=== PATIENT | female | born 1955 | race Caucasian/White ===

== ENCOUNTER → 2023-01-17 | Outpatient (CLI) | payer OTHER ==
[2023-01-20 17:09] LABS: M-SPIKE, % Comment: % (Not Observed); PROTEIN,TOTAL,URINE 124.6 mg/dL (Not Estab.)
== END ==
LOC: LAB 08:30 → LAB SHORT 08:30
PROVIDERS: Hospitalist
DX: N18.5 Chronic kidney disease, stage 5 (principal)
CPT/HCPCS: 84156; 84166

== ENCOUNTER 2023-02-07 02:31 | Day surgery (SDC) | payer OTHER ==
[2023-02-07 13:45] VITALS: BP 154/87
[2023-02-07] MEDS ORDERED: Rena-Vite Tabl0.8 MG PO (13:51)
[2023-02-07] MEDS ORDERED: CINACALCET HCL30 M1 PO (13:52)
[2023-02-07] MEDS ORDERED: DICLOFENAC SOD100 G1 TOP (13:53)
== END 2023-02-07 14:22 | disposition home or self-care (01) ==
LOC: ATC 02:31
DX: N18.5 Chronic kidney disease, stage 5 (principal); D63.1 Anemia in chronic kidney disease; F17.210 Nicotine dependence, cigarettes, uncomplicated; Z79.899 Other long term (current) drug therapy
CPT/HCPCS: 96372; Q5106

== ENCOUNTER 2023-03-14 08:45 | Day surgery (SDC) | payer OTHER ==
[~2023-03-14 08:45] MED LIST: CINACALCET HCL30 M1 PO; DICLOFENAC SOD100 G1 TOP; Rena-Vite Tabl0.8 MG PO
[2023-03-14 13:59] VITALS: BP 158/94
[2023-03-14] MEDS ORDERED: RENVELA800 MG PO (14:08)
== END 2023-03-14 14:10 | disposition home or self-care (01) ==
LOC: ATC 08:45
DX: D64.9 Anemia, unspecified (principal); N18.5 Chronic kidney disease, stage 5
CPT/HCPCS: 96372; Q5106

== ENCOUNTER 2023-04-13 07:51 | Day surgery (SDC) | payer OTHER ==
[~2023-04-13 07:51] MED LIST changes: +RENVELA800 MG PO
[2023-04-13 13:48] VITALS: BP 137/98
== END 2023-04-13 13:55 | disposition home or self-care (01) ==
LOC: ATC 07:51
DX: N18.4 Chronic kidney disease, stage 4 (severe) (principal); D63.1 Anemia in chronic kidney disease
CPT/HCPCS: 96372; Q5106

== ENCOUNTER 2023-05-11 04:07 | Day surgery (SDC) | payer OTHER ==
[2023-05-11 13:45] VITALS: BP 147/93
== END 2023-05-11 13:54 | disposition home or self-care (01) ==
LOC: ATC 04:07
DX: I12.0 Hypertensive chronic kidney disease with stage 5 chronic kidney disease or end stage renal disease (principal); N18.5 Chronic kidney disease, stage 5; D63.1 Anemia in chronic kidney disease
CPT/HCPCS: 96372; Q5106

== ENCOUNTER 2023-06-22 02:29 | Day surgery (SDC) | payer OTHER ==
[2023-06-22 10:57] VITALS: BP 139/88
== END 2023-06-22 11:07 | disposition home or self-care (01) ==
LOC: ATC 02:29
DX: N18.5 Chronic kidney disease, stage 5 (principal); D63.1 Anemia in chronic kidney disease; E21.2 Other hyperparathyroidism; F17.210 Nicotine dependence, cigarettes, uncomplicated; Z79.899 Other long term (current) drug therapy
CPT/HCPCS: 96372; Q5106

== ENCOUNTER 2023-07-27 00:08 | Day surgery (SDC) | payer OTHER ==
[2023-07-27 10:09] VITALS: BP 151/85
== END 2023-07-27 10:17 | disposition home or self-care (01) ==
LOC: ATC 00:08
DX: N18.5 Chronic kidney disease, stage 5 (principal); D63.1 Anemia in chronic kidney disease; E83.52 Hypercalcemia; R63.4 Abnormal weight loss; F17.210 Nicotine dependence, cigarettes, uncomplicated
CPT/HCPCS: 96372; Q5106

== ENCOUNTER 2023-08-31 02:42 | Day surgery (SDC) | payer OTHER ==
--- NOTE | 2023-08-28 12:30 | NUR ---
PT CANCELLED HER APPOINTMENT FOR TODAY.
[~2023-08-31 02:42] MED LIST changes: +Epoetin Alfa-EPBX 10,000 Unit/ML 1ML Vial SC SCH
[2023-08-31] MEDS ORDERED: Epoetin Alfa-EPBX 10,000 Unit/ML 1ML Vial SC SCH (06:00)
[2023-08-31 10:10] VITALS: BP 128/88
== END 2023-08-31 10:13 | disposition home or self-care (01) ==
LOC: ATC 02:42
DX: N18.5 Chronic kidney disease, stage 5 (principal); D63.1 Anemia in chronic kidney disease; N25.81 Secondary hyperparathyroidism of renal origin; Z79.899 Other long term (current) drug therapy
CPT/HCPCS: 96372; Q5106

== ENCOUNTER 2024-03-07 07:53 | Day surgery (SDC) | payer OTHER ==
[~2024-03-07] VITALS: Ht 152.4 cm; Wt 43.4 kg
[~2024-03-07 07:53] MED LIST changes: +ACET500 PO; +ALBU90OI INH; +CALCITRIOL0.5 MC1 PO; +Calcium Carbon500 MG PO; +DOCU100 PO; +ERGO50000 PO; -Epoetin Alfa-EPBX 10,000 Unit/ML 1ML Vial SC SCH; +FERSU300 PO; +HYDCHL50 PO; +HYDHCL25 PO; +MAGNESIUM OXID500 MG PO; +MIRALAX17 GM PO; +NEPHRO VITAMIN0.8 MG PO; +SODBIC650 PO; +Voltaren100 GM TOP
[2024-03-07 08:21] VITALS: BP 141/83
[2024-03-07] MEDS ORDERED: CALCITRIOL0.5 MC1 PO (08:29)
[2024-03-07] MEDS ORDERED: CRANBERRY500 MG PO (08:30)
[2024-03-07] MEDS ORDERED: HYDHCL25 PO (08:30)
[2024-03-07 09:01] LABS: BASOPHILS ABSOLUTE AUTO 0.12 K/mm3 (0.00-0.23); BASOPHILS PERCENT AUTO 1 % (0-2); EOSINOPHILS ABSOLUTE AUTO 0.42 K/mm3 (0.00-0.68); EOSINOPHILS PERCENT AUTO 4 % (0-6); Hematocrit 27.3 % (33.0-51.0); Hemoglobin 9.1 g/dL (11.5-16.0); IMMATURE GRAN ABSOLUTE AUTO 0.03 K/mm3 (0.00-0.10); IMMATURE GRAN PERCENT AUTO 0 % (0-1); LYMPHOCYTES ABSOLUTE AUTO 2.55 K/mm3 (0.84-5.20); LYMPHOCYTES PERCENT AUTO 27 % (21-46); MONOCYTES ABSOLUTE AUTO 0.76 K/mm3 (0.16-1.47); MONOCYTES PERCENT AUTO 8 % (4-13); Mean Corpuscular HGB 31.7 pg (26.0-34.0); Mean Corpuscular HGB Conc 33.3 g/dL (31.5-36.5); Mean Corpuscular Volume 95 fL (80-100); Mean Platelet Volume 8.7 fL (9.1-12.4); NEUTROPHILS ABSOLUTE AUTO 5.75 K/mm3 (1.96-9.15); NEUTROPHILS PERCENT AUTO 60 % (41-73); Platelet Count 312 K/mm3 (150-400); RDW Coefficient Variation 13.7 % (11.7-14.2); RDW Standard Deviation 46.7 fL (35.1-46.3); Red Blood Cell Count 2.87 M/mm3 (3.80-5.20); White Blood Cell Count 9.63 K/mm3 (4.00-11.30)
[2024-03-07] MEDS ORDERED: Heparin Sodium 1000 Units/ML 10ML MDV ONE (09:11)
[2024-03-07] MEDS ORDERED: NS 250 ML IV ONE (09:11)
[2024-03-07 09:13] LABS: Bun/Creatinine Ratio 16.8 (12.0-20.0); Calcium, Blood 9.3 mg/dL (8.5-10.1); Creatinine, Blood 6.44 mg/dL (0.40-1.00); Potassium, Blood 3.8 mmol/L (3.5-5.5)
[2024-03-07] MEDS ORDERED: Midazolam HCl 1MG / ML 2ML Vial ONE (10:01)
[2024-03-07] MEDS ORDERED: NS 500 ML IV ONE (10:01)
[2024-03-07] MEDS ORDERED: FentaNYL Citrate 50 MCG/ML 2 ML Injection ONE (10:01)
[2024-03-07] MEDS ORDERED: Heparin Sodium 10,000 Units/ML 1ML MDV ONE (10:28)
[2024-03-07 10:55] VITALS: BP 122/82
[2024-03-07 11:15] VITALS: BP 123/89
[2024-03-07 11:30] VITALS: BP 118/78
--- NOTE | 2024-03-07 11:45 | NUR ---
PT AMBULATES TO RESTROOM AND BACK WTIHOUT DIFF. PT R IJ SITE REMAINS C/D/I. NO BLEEDING NOTED. VSS. NADN.
--- NOTE | 2024-03-07 11:53 | NUR ---
PT AND FRIEND VERBALIZES UNDERSTANDING WRITTEN INSTRUCTIONS. VSS. NADN. PT IV DC'D. CATH INTACT. PRESSURE DSG APPLIED. PT DC TO HOME VIA FAMILY BY AMY.
== END 2024-03-07 12:00 | disposition home or self-care (01) ==
LOC: MHTC 07:53
PROVIDERS: Radiology Diagnostic Radiology
DX: N18.6 End stage renal disease (principal); N25.81 Secondary hyperparathyroidism of renal origin; F17.210 Nicotine dependence, cigarettes, uncomplicated; Z79.899 Other long term (current) drug therapy; Z98.890 Other specified postprocedural states; Z90.89 Acquired absence of other organs
CPT/HCPCS: 76937; 80048; 85025; 99152; C1750; C1769; C1894; J1644; J2250; J3010; J7040; J7050

== ENCOUNTER 2024-03-07 19:05 | Emergency (ER) | payer OTHER ==
[~2024-03-07] VITALS: Ht 162.6 cm; Wt 43.1 kg
[~2024-03-07 19:05] MED LIST changes: +CRANBERRY500 MG PO
[2024-03-07 20:45] VITALS: BP 129/92
== END 2024-03-07 20:45 | disposition home or self-care (01) ==
LOC: ER 19:05
DX: T82.838A Hemorrhage due to vascular prosthetic devices, implants and grafts, initial encounter (principal)
CPT/HCPCS: 99283

== ENCOUNTER 2024-03-08 01:17 | Day surgery (SDC) | payer OTHER ==
[2024-03-08] MEDS ORDERED: Epoetin Alfa-EPBX 10,000 Unit/ML 1ML Vial SC SCH (06:00)
[2024-03-08 10:52] VITALS: BP 125/76
== END 2024-03-08 10:57 | disposition home or self-care (01) ==
LOC: ATC 01:17
DX: D63.1 Anemia in chronic kidney disease (principal); N18.5 Chronic kidney disease, stage 5; F17.210 Nicotine dependence, cigarettes, uncomplicated; Z79.899 Other long term (current) drug therapy
CPT/HCPCS: 96372; Q5106

== ENCOUNTER → 2024-04-25 | Outpatient (CLI) | payer OTHER ==
[2024-04-25 07:57] LABS: Albumin, Blood 2.5 g/dL (3.4-5.0); Anion Gap 11 mmol/L (3-11); Blood Urea Nitrogen 39 mg/dL (8-24); Bun/Creatinine Ratio 6.7 (12.0-20.0); CO2, Blood 25 mmol/L (21-32); Calcium, Blood 6.7 mg/dL (8.5-10.1); Chloride, Blood 102 mmol/L (98-108); Glomerular Filtration Rate 8 (60-); Glucose, Blood 159 mg/dL (70-99); Phosphorus, Blood 3.9 mg/dL (2.5-4.9); Potassium, Blood 4.4 mmol/L (3.5-5.5); Sodium, Blood 134 mmol/L (136-145)
== END | disposition home or self-care (01) ==
LOC: LAB SHORT 07:30 → LAB 07:30
PROVIDERS: Internal Medicine Endocrinology, Diabetes & Metabolism
DX: E89.2 Postprocedural hypoparathyroidism (principal)
CPT/HCPCS: 80069; 83970

== ENCOUNTER 2024-10-24 11:04 | Observation (INO) | payer OTHER ==
[~2024-10-24] VITALS: Ht 162.6 cm; Wt 54.8 kg
[2024-10-24] MEDS ORDERED: Ketorolac Tromethamine 30mg Vial IV ONE (12:00)
[2024-10-24 15:55] LABS: BASOPHILS ABSOLUTE AUTO 0.08 K/mm3 (0.00-0.23); BASOPHILS PERCENT AUTO 1 % (0-2); EOSINOPHILS ABSOLUTE AUTO 0.45 K/mm3 (0.00-0.68); EOSINOPHILS PERCENT AUTO 6 % (0-6); Hematocrit 32.3 % (33.0-51.0); Hemoglobin 10.4 g/dL (11.5-16.0); IMMATURE GRAN ABSOLUTE AUTO 0.02 K/mm3 (0.00-0.10); IMMATURE GRAN PERCENT AUTO 0 % (0-1); LYMPHOCYTES ABSOLUTE AUTO 2.51 K/mm3 (0.84-5.20); LYMPHOCYTES PERCENT AUTO 33 % (21-46); MONOCYTES ABSOLUTE AUTO 0.65 K/mm3 (0.16-1.47); MONOCYTES PERCENT AUTO 9 % (4-13); Mean Corpuscular HGB 31.3 pg (26.0-34.0); Mean Corpuscular HGB Conc 32.2 g/dL (31.5-36.5); Mean Corpuscular Volume 97 fL (80-100); Mean Platelet Volume 8.7 fL (9.1-12.4); NEUTROPHILS ABSOLUTE AUTO 3.89 K/mm3 (1.96-9.15); NEUTROPHILS PERCENT AUTO 51 % (41-73); Platelet Count 231 K/mm3 (150-400); RDW Coefficient Variation 15.6 % (11.7-14.2); RDW Standard Deviation 54.9 fL (35.1-46.3); Red Blood Cell Count 3.32 M/mm3 (3.80-5.20)
[2024-10-24] MEDS ORDERED: HYDROcodone 5-APAP 325 TAB PO PRN (15:55)
[2024-10-24 16:09] LABS: Albumin, Blood 3.2 g/dL (3.4-5.0); Albumin/Globulin Ratio 0.9 (0.8-1.8); Bilirubin, Total 0.4 mg/dL (0.1-1.0); Calcium, Blood 8.5 mg/dL (8.5-10.1); Creatinine, Blood 6.81 mg/dL (0.40-1.00); Globulin, Blood 3.6 g/dL (2.2-4.0); Magnesium, Blood 2.6 mg/dL (1.6-2.4); Potassium, Blood 5.1 mmol/L (3.5-5.5); Total Protein, Blood 6.8 g/dL (6.4-8.2)
[2024-10-24] MEDS ORDERED: FentaNYL Citrate 50 MCG/ML 2 ML Injection IV PRN (16:10)
[2024-10-24 19:17] VITALS: BP 124/85
[2024-10-24] MEDS ORDERED: Heparin Sodium,Porcine 5,000 UNIT/0.5 ML SDV SC SCH (21:00)
[2024-10-24] MEDS ORDERED: Docusate Sodium 100 MG Cap PO SCH (21:00)
--- NOTE | 2024-10-24 22:00 | NUR ---
PT RESTING QUIETLY, TV ON, NO NEEDS AT THIS TIME. CALL LT IN REACH.
[2024-10-25] VITALS (15 sets, daily range): BP systolic 92–152; BP diastolic 57–96
--- NOTE | 2024-10-25 00:23 | NUR ---
PT RESTING QUIETLY. CALL LT IN REACH.
--- NOTE | 2024-10-25 01:04 | NUR ---
PAIN MED GIVEN FOR 5/10 "GROIN" PAIN. WILL REASSESS. CALL LT IN REACH. NO OTHER NEEDS.
--- NOTE | 2024-10-25 01:39 | NUR ---
PT AWAKE PLAYING A GAME ON HER PHONE, STATES SHE'S DOING OK AFTER TAKING A PAIN PILL. NO OTHER NEEDS. CALL LT IN REACH.
--- NOTE | 2024-10-25 04:02 | NUR ---
MEDICATED PT WITH 25 MCG OF FENTANYL. NO OTHER NEEDS. CALL LT IN REACH.
--- NOTE | 2024-10-25 04:19 | NUR ---
SHIFT SUMMARY: A/O X 4. STATES NEEDS APPROPRIATELY. ON RA. MEDICATED X 2 FOR PAIN PER EMAR. PT RESTED WELL T/O SHIFT. NO NAUSEA REPORTED. HAS A PERMA CATH IN [facility]. NEWER FISTULA IN L ARM NOT MATURED. LAST DIALYSIS ON MONDAY. DIALYSIS SCHEDULE MONDAY, MONDAY AND MONDAY. PUREWICK IN PLACE. NO ACUTE CHANGES. WILL CONTINUE TO PROVIDE CARE UNTIL SHIFT REPORT TO ONCOMING NURSE. CALL LT IN REACH.
--- NOTE | 2024-10-25 06:29 | NUR ---
PT UNCOMFORTABLE, PAIN MED AND THEN REPOSITION, PT DECLINES AT THIS TIME, STATES SHE IS OK FOR NOW. CALL LT IN REACH.
[2024-10-25] MEDS ORDERED: OxyCODONE HCL 5 MG TAB PO PRN (08:55)
[2024-10-25 10:42] LABS: Bun/Creatinine Ratio 7.6 (12.0-20.0); Calcium, Blood 7.9 mg/dL (8.5-10.1); Creatinine, Blood 8.19 mg/dL (0.40-1.00); Potassium, Blood 5.3 mmol/L (3.5-5.5)
[2024-10-25] MEDS ORDERED: Acetaminophen 500 MG Tab PO PRN (11:30)
[2024-10-25] MEDS ORDERED: Albuterol HFA200 ACT/6.7 GM INH INH PRN (11:35)
[2024-10-25] MEDS ORDERED: Calcitriol 0.25 MCG Cap PO SCH (12:00)
[2024-10-25] MEDS ORDERED: HyDROXyzine HCl 25 MG Tab PO SCH (12:00)
[2024-10-25] MEDS ORDERED: Sevelamer Carbonate 800 MG Tab PO SCH ×2 (12:30→17:30)
[2024-10-25] MEDS ORDERED: Sevelamer Carbonate 800 MG Tab PO ONE (12:40)
--- NOTE | 2024-10-25 16:32 | NUR ---
SHIFT SUMMARY MS CORONA HAD DIALYSIS THIS MORNING AND HAS BEEN RESTING IN BED THIS AFTERNOON. HER WAS AT HER BEDSIDE FOR A WHILE AND SHE HAS BEEN SLEEPING ON AND OFF. MS CORONA HAS BEEN EDUCATED ON PREVENTATIVE CARE, PREVENTING SKIN BREAKDOWN, PREVENTING BLOOD CLOTS, PREVENTING UTI, PREVENTING CONSTIPATION, KEEPING MOBILITY AND STRENGTH. SHE SAID THAT SHE FEELS ANXIOUS AND ANGRY. WHEN ASKED FOR SPECIFICS SHE SAID THAT SHE'S ANGRY THAT SHE FELL AND GOT A PUBIC FRACTURE. SHE TOOK ONE DOSE OF PAIN MEDICATIONS AFTER DIALYSIS, SAID THAT SHE DOESN'T HAVE PAIN WHILE LYING STILL. SHE HAS BEEN EDUCATED AND ENCOURAGED TO REPOSITION, RELIEVE PRESSURE WITH PILLOWS, SOME MOVEMENT. SHE DID NOT WANT TO GET UP WITH PT THIS AM. SHE HAS BEEN OFFERED FURTHER PAIN MEDICATIONS. SHE IS RELUCTANT TO PARTICIPATE IN CARE. WHEN REEDUCATED SHE AGREED TO PARTICIPATE IN REPOSITIONING, JUST NOT YET. HER WAS IN THE ROOM FOR SOME OF THE EDUCATION AND WAS OFFERING HIS SUPPORT ALSO. MS CORONA SAID SHE DOES NOT LIKE THE FOOD HERE, SHE HAS BEEN OFFERED SNACKS. HER BROUGHT HER IN LUNCH. I WILL CONTINUE TO EDUCATE AND ENCOURAGE HER TO TAKE PAIN MEDICATIONS, ALLOW REPOSITIONING ETCETERA. BED LOW, CALL LIGHT IN REACH, PT SLEEPING CURRENTLY.
[2024-10-26] VITALS (16 sets, daily range): BP systolic 91–137; BP diastolic 55–87
--- NOTE | 2024-10-26 05:10 | NUR ---
PIPE TESTER SUMMARY PT IS A/OX4. NO ACUTE CHANGES. REENFORCED EDUCATION PROVIDED AT DAY SHIFT WITH EMPHASIS ON REPOSITIONING TO PREVENT PRESSURE INJURY/SKIN BREAKDOWN. PT IRRITABLE DURING CONVERSATIONS. PT VOCAL ABOUT FRUSTRATION WITH HEPARIN INJECTIONS. SHE IS UPSET SHE HAS TO TAKE THEM AND DOES NOT WANT TO TAKE THEM 3X A DAY. EDUCATED PT ON BLOOD CLOT PREVENTION. REGULAR ROUNDING DONE T/O THE SHIFT. PT REFUSED MIDNIGHT DOSE OF ATARAX--PT DID NOT WANT TO BE AWAKENED TO TAKE THE MEDICATIONS. CALL LIGHT ACCESSIBLE.
[2024-10-26 06:49] LABS: Albumin, Blood 2.8 g/dL (3.4-5.0); Anion Gap 11 mmol/L (3-11); Blood Urea Nitrogen 36 mg/dL (8-24); Bun/Creatinine Ratio 6.5 (12.0-20.0); CO2, Blood 28 mmol/L (21-32); Chloride, Blood 98 mmol/L (98-108); Creatinine, Blood 5.58 mg/dL (0.40-1.00); Glomerular Filtration Rate 8 (60-); Glucose, Blood 111 mg/dL (70-99); Phosphorus, Blood 5.3 mg/dL (2.5-4.9); Sodium, Blood 132 mmol/L (136-145)
[2024-10-26] MEDS ORDERED: CalcitrioL 0.5 MCG Cap PO SCH (09:00)
--- NOTE | 2024-10-26 17:38 | NUR ---
SHIFT SUMMARY: PATIENT IS ALERT AND ORIENTEDX4/REMAINS BEDREST WITH LIMITED MOBILITY DUE TO PAIN. PATIENT ENCOURAGED TO MOVE; WORKING WITH PT TODAY AND DID MOVEMENT WITHIN THE BED. PATIENT REPOSITIONED WHEN WILLING AND TOLERATED. MEDICATING NEEDED FOR PAIN. PATIENT UNDERWENT DIALYSIS TODAY; DID NOT GET FLUID REMOVED DUE TO BLOOD PRESSURE. SHE IS IN BED, CALL LIGHT WITHIN REACH, NO SIGNS OR SYMPTOMS OF DISTRESS, PLAN OF CARE ONGOING. LEIGH AND DONNA CHANGED/JONI CARE AT 1735; NO REDNESS OF BOTTOM.
--- NOTE | 2024-10-27 03:14 | NUR ---
SHIFT SUMMARY PATIENT IS RESTING IN BED AND DOES NOT WANT ANY PAIN MEDICATION AT THIS TIME. SHE HAS BEEN MEDICATED FOR PAIN X1 ON THIS SHIFT. VITAL SIGNS ARE STABLE. PATIENT IS ORIENTED X 4. SHE HAS HER CALL LIGHT WITHIN REACH. SAFETY PRECAUTIONS ARE BEING MAINTAINED.
[2024-10-27 04:44] VITALS: BP 106/69
[2024-10-27 05:02] LABS: Albumin, Blood 2.7 g/dL (3.4-5.0); Anion Gap 9 mmol/L (3-11); Blood Urea Nitrogen 29 mg/dL (8-24); Bun/Creatinine Ratio 6.5 (12.0-20.0); CO2, Blood 29 mmol/L (21-32); Calcium, Blood 8.4 mg/dL (8.5-10.1); Chloride, Blood 97 mmol/L (98-108); Creatinine, Blood 4.48 mg/dL (0.40-1.00); Glomerular Filtration Rate 10 (60-); Glucose, Blood 94 mg/dL (70-99); Phosphorus, Blood 5.4 mg/dL (2.5-4.9); Sodium, Blood 130 mmol/L (136-145)
[2024-10-27 07:32] VITALS: BP 130/110
[2024-10-27] MEDS ORDERED: OxyCODONE HCL 5 MG TAB PO PRN (10:05)
[2024-10-27 15:16] LABS: HEPATITIS B SURFACE ANTIBODY <3.10 IU/L
[2024-10-27 15:29] LABS: HEPATITIS B SURFACE ANTIGEN Negative (Negative)
[2024-10-27 15:49] LABS: HBV CORE ANTIBODIES,TOTAL Negative (Negative)
[2024-10-27 17:12] VITALS: BP 125/81
--- NOTE | 2024-10-27 17:41 | NUR ---
ASSUMED CARE OF PT PT IS A/O X4 VERY PLEASENT BUT IN A LOT OF PAIN, PT WAS CRYING OUT IN PAIN AND WAS MEDICATED PER MAR. PURWIC IN PLACE CALL LIGHT WITHIN REACH AND MAKES NEEDS KNOWN. REPOSITIONING EVERY 2 HOURS. PT WAS EDUCATED ABOUT NEEDING TO MOVE OFTEN TO PREVENT STIFFNESS AND ADDITONAL PAIN.
--- NOTE | 2024-10-27 19:21 | NUR ---
NO CHANGE IN CONDITION PT MAKING ATTEMPTS TO MOVE SELF. AT THE BEDSIDE BOTH EATING DINNER
[2024-10-27 19:25] VITALS: BP 118/73
[2024-10-28 02:02] VITALS: BP 118/70
--- NOTE | 2024-10-28 04:35 | NUR ---
SHIFT SUMMARY: PT AOX4 CALLS APPROPRIATELY AND ABLE TO MAKE NEEDS KNOWN. INTRACTABLE PAIN, AND CALLS WHEN SHE FEELS PAIN MEDICATION IS NEEDED. HAS BEEN REPOSITIONING HERSELF WELL AND PAIN IS NON EXISTENT WHILE AT REST AND EXCRUCIATING WHILE MOVING. STATES SHE IS FEELING/ DOING BETTER. PT FAMILY CONCERNED WITH GETTING ACCESS TO CASE MANAGEMENT AND PT ADVOCATE. DAY SHIFT AWARE. PT VERY PLEASANT AND ABLE TO SLEEP THROUGH MOST OF THE NIGHT. MEDICATED FOR PAIN PER ERM. NO ACUTE EVENTS OVERNIGHT. PT IN BED SLEEPNIG, BED IN LOWEST POSITION, CALL LIGHT IN REACH. CONTINUING CARE.
[2024-10-28 07:33] VITALS: BP 117/71
[2024-10-28 16:11] VITALS: BP 128/87
[2024-10-28 19:20] VITALS: BP 132/82
[2024-10-29] VITALS (17 sets, daily range): BP systolic 98–160; BP diastolic 59–102
--- NOTE | 2024-10-29 04:17 | NUR ---
SHIFT SUMMARY PATIENT IS ALERT AND ORIENTED. PATIENT HAS HAD NO ACUTE EVENTS THIS SHIFT. VITAL SIGNS REVIEWED. PATIENT HAS COMPLAINED OF PAIN AND MEDICATED PER EMAR. PATIENT HAS HAD NO COMPLAINTS OF SOB, NAUSEA, OR VOMITTING THIS SHIFT. PATIENT IS AWAITING DISCHARGE TO SNF. BED IN LOCKED AND LOWEST POSITION.
[2024-10-29 09:05] LABS: Albumin, Blood 2.8 g/dL (3.4-5.0); Anion Gap 16 mmol/L (3-11); Blood Urea Nitrogen 64 mg/dL (8-24); Bun/Creatinine Ratio 8.2 (12.0-20.0); CO2, Blood 24 mmol/L (21-32); Calcium, Blood 8.4 mg/dL (8.5-10.1); Chloride, Blood 97 mmol/L (98-108); Creatinine, Blood 7.78 mg/dL (0.40-1.00); Glomerular Filtration Rate 5 (60-); Glucose, Blood 90 mg/dL (70-99); Phosphorus, Blood 7.1 mg/dL (2.5-4.9); Sodium, Blood 132 mmol/L (136-145)
[2024-10-30 02:28] VITALS: BP 114/65
--- NOTE | 2024-10-30 04:47 | NUR ---
SHIFT SUMMARY: PT AOX4 BED REST. ABLE TO REPOSITION SELF IN BED, STATES PAIN IS MUCH BETTER. NEEDED TO HAVE BOWEL MOVEMENT, INSISTED ON USING BSC. HEAVY 2PA, ABLE TO SCOOT INTO BSC WITH SEVERE DISCOMFORT. ABLE TO SIT ON THE BSC AND HAVE MED SIZED, HARD BM AND CLEAN SELF. NEEDED ASSISTANCE TO GET BACK INTO BED. PAIN MEDICATED PER EMR. PT EXCITED TO HAVE BM AND TO GO TO SNF. PT PROCEDED TO SLEEP WELL THROUGH THE NIGHT. PT IN BED, BED IN LOWEST POSITION, CALL LIGHT IN REACH. CONTINUING CARE.
[2024-10-30 07:07] VITALS: BP 118/68
[2024-10-30] MEDS ORDERED: OxyCODONE HCL 5 MG TAB PO PRN (08:30)
[2024-10-30] MEDS ORDERED: DOCU100 PO (13:31)
[2024-10-30] MEDS ORDERED: OXYC5 PO (13:32)
[2024-10-30] MEDS ORDERED: Atarax10 MG PO (13:32)
[2024-10-30] MEDS ORDERED: SEVEC800 PO (13:33)
--- NOTE | 2024-10-30 14:39 | NUR ---
DISCHARGE NOTE PT DISCHARGED TO HOME, PICKED UP BY HER . HARD SCRIPT PROVIDED TO THE PT. DISCHARGE INFORMATION REVIEWED AND DISCUSSED. PT TAKEN TO VEHICLE BY WHEELCHAIR. PERSONAL BELONGINGS RETURNED.
== END 2024-10-30 14:10 | disposition home health service (06) ==
LOC: ER 11:04 → MEDS 11:05
PROVIDERS: Hospitalist; Student in an Organized Health Care Education/Training Program; ADMIT Internal Medicine
DX: S32.592A Other specified fracture of left pubis, initial encounter for closed fracture (principal); W01.0XXA Fall on same level from slipping, tripping and stumbling without subsequent striking against object, initial encounter; N18.6 End stage renal disease; E89.2 Postprocedural hypoparathyroidism; D63.1 Anemia in chronic kidney disease; J44.9 Chronic obstructive pulmonary disease, unspecified; F17.200 Nicotine dependence, unspecified, uncomplicated; Z99.2 Dependence on renal dialysis; Z79.899 Other long term (current) drug therapy
CPT/HCPCS: 36415; 72192; 73522; 80048; 80053; 80069; 82947; 83735; 85025; 86704; 87340; 94760; 96372; 96374; 96375; 96376; 97110; 97110-CQ; 97161; 97530; 99285-25; A9270; G0257; G0378; J1644; J1885; J3010

== ENCOUNTER → 2025-04-07 | Outpatient (CLI) | payer OTHER ==
[~2025-04-07] MED LIST changes: +Atarax10 MG PO; +OXYC5 PO; +SEVEC800 PO
== END | disposition home or self-care (01) ==
LOC: LAB 17:27 → LAB SHORT 17:27
DX: R10.84 Generalized abdominal pain (principal)
CPT/HCPCS: 87077; 87086; 87186